=== PATIENT | female | born 1985 | race Caucasian/White ===

== ENCOUNTER 2021-08-18 18:54 | Inpatient (IN) | payer OTHER, SELFPAY ==
[2021-08-18 19:11] VITALS: BP 139/88; PULSE 93; RESP 16; TEMP 37.1; O2SAT 99; BMI 23.3
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
[2021-08-18 20:09] LABS: COVID-19 Test Negative (Negative)
[2021-08-18 20:57] LABS: Amphetamine Screen Urine Not Detected (Not Detect); Barbiturates, Urine Not Detected (Not Detect); Benzodiazepines Screen Urine Not Detected (Not Detect); Cannabinoid Screen Urine POSITIVE (Not Detect); Cocaine Screen Urine Not Detected (Not Detect); Fentanyl, urine Not Detected (Not Detect); Opiate Screen Urine Not Detected (Not Detect); Phencyclidine Screen Urine Not Detected (Not Detect)
[2021-08-18 21:15] LABS: UPreg QC Valid YES; Urine Pregnancy NEGATIVE (NEGATIVE)
[2021-08-18] MEDS: LORazepam 1 MG TABLET 2 MG PO (23:09)
[2021-08-18] MEDS: diphenhydrAMINE HCL 25 MG TABLET 50 MG PO (23:09)
[2021-08-18 23:14] VITALS: BP 144/79; PULSE 65; RESP 18; TEMP 36.7; O2SAT 98
[2021-08-19 01:23] LABS: Appearance Urine CLEAR; Color Urine YELLOW; Glucose Urine UA NEG (NEG); Leukocyte Esterase Urine NEG (NEG); Nitrite Urine NEG (NEG); Urine Blood NEG (NEG); Urine Ketones NEG (NEG); Urine Protein NEG (NEG-TRACE)
--- NOTE | 2021-08-19 06:11 | PC.NURSE ---
Patient slept well, administered Ativan 2 mg po and Benadryl 50 mg po with positive effect, mood depressed affect flat, behavior non concerning at this time, medication compliant, currently not on any medication/stop taking her scheduled medication her provider aware, disposition care team is section 12 inpatient bed search, will continue to monitor.
--- NOTE | 2021-08-19 07:14 | PC.NURSE ---
patient appears to remain asleep at present respirations are even and unlabored patient appears in no distress
[2021-08-19 16:00] VITALS: BP 115/74; PULSE 53; RESP 16; TEMP 36.9; O2SAT 100
[2021-08-19 16:14] LABS: MANUAL DIFF FLAG NO
[2021-08-19 16:16] LABS: Basophils Percent Auto 0.6 % (0-2); Eosinophils Absolute Auto 0.1 X10*3/uL (0.0-0.4); Eosinophils Percent Auto 1.1 % (0-4); Hematocrit 40.1 % (37.0-47.0); Hemoglobin 13.7 g/dl (12.0-16.0); Imm Gran Abs Auto 0.01 X10*3/uL (0.00-0.03); Imm Gran Pct Auto 0.2 % (0.0-0.4); Lymphocytes Absolute Auto 1.4 X10*3/uL (1.2-4.9); Lymphocytes Percent Auto 26.1 % (20-40); Mean Corpuscular HGB Conc 34.2 g/dl (31.0-35.0); Mean Corpuscular Volume 87.7 fL (80.0-98.0); Mean Platelet Volume 10.2 fL (9.4-12.3); Monocytes Absolute Auto 0.5 X10*3/uL (0.1-1.2); Monocytes Percent Auto 9.7 % (2-11); Neutrophils Absolute Auto 3.3 x10*3/uL (2.0-8.3); Neutrophils Percent Auto 62.3 % (45-73); Platelet Count 176 X10*3/uL (160-400); Red Blood Count 4.57 X10*6/uL (4.20-5.50); Red Cell Distribution Width 11.7 % (11.0-16.0); White Blood Count 5.4 X10*3/uL (4.8-10.8)
[2021-08-19 16:31] LABS: Alanine Aminotransferase 8 U/L (0-31); Albumin Level 4.2 g/dL (3.5-5.0); Alkaline Phosphatase 56 U/L (39-117); Anion Gap 9 (12-20); Aspartate Amino Transferase 15 U/L (5-31); Bilirubin Total 1.2 mg/dL (0.0-1.0); Blood Urea Nitrogen 9 mg/dL (9-16); Calcium 9.3 mg/dL (8.4-10.2); Carbon Dioxide 28 mmol/L (22-29); Chloride 107 mmol/L (96-108); Creatinine Clr Calc Pharmacy 87.7; Estimated Glomerular Filt Rate > 60; Glucose Fasting 83 mg/dL (60-99); Sodium 140 mmol/L (135-145); Total Protein 6.8 g/dL (6.5-8.0)
[2021-08-19 16:35] LABS: COVID-19 Test Negative (Negative)
[2021-08-19 19:56] VITALS: BP 148/103; PULSE 112; RESP 18; TEMP 37.6; O2SAT 100
[2021-08-19 20:01] VITALS: BP 148/103; PULSE 112; RESP 18; TEMP 37.6
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
[2021-08-19] MEDS: traZODone HCL 50 MG TABLET PO (22:15)
[2021-08-19] MEDS: Acetaminophen 325 MG TABLET 650 MG PO (22:18)
[2021-08-20 09:15] LABS: Estimated Average Glucose 94 mg/dL; Hemoglobin A1c % 4.9 %
[2021-08-20 09:41] LABS: Cholesterol 167 mg/dL; HDL Cholesterol 60 mg/dL; LDL Cholesterol Calculated 93 mg/dl; Triglycerides 70 mg/dL
[2021-08-20 10:01] LABS: Thyroid Stimulating Hormone 0.49 uIU/mL (0.32-4.0)
[2021-08-20 10:07] VITALS: BP 131/92; PULSE 122; RESP 18; TEMP 36.7; O2SAT 98
[2021-08-20 10:26] LABS: Folate 16.8 ng/mL (> or = 4.0); Vitamin B12 253 pg/mL (200-900)
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
[2021-08-20 14:45] VITALS: BP 136/84; PULSE 114
[2021-08-20] MEDS: cloNIDine HCL 0.1 MG TABLET 0.05 MG PO (14:46)
[2021-08-20 20:33] VITALS: BP 121/84; PULSE 95; RESP 18; TEMP 36.6; O2SAT 97
[2021-08-20] MEDS: cloNIDine HCL 0.1 MG TABLET PO (20:36)
[2021-08-20] MEDS: traZODone HCL 50 MG TABLET PO (23:02)
[2021-08-21 07:00] VITALS: BMI 22.4
[2021-08-21 10:15] VITALS: BP 128/85; PULSE 125; RESP 18; TEMP 36.4; O2SAT 98
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
[2021-08-21 21:05] VITALS: BP 133/86; PULSE 101; TEMP 38.3
[2021-08-21] MEDS: Acetaminophen 325 MG TABLET 650 MG PO (22:16)
[2021-08-21] MEDS: cloNIDine HCL 0.1 MG TABLET PO (22:17)
[2021-08-21] MEDS: QUEtiapine Fumarate 50 MG TABLET PO (22:17)
[2021-08-21] MEDS: Milk of Magnesia 30 ML ORAL.SUSP PO (23:28)
[2021-08-22] MEDS: hydrOXYzine HCL 25 MG TABLET PO (02:24)
[2021-08-22 06:00] VITALS: BP 132/88; PULSE 104; RESP 18; TEMP 36.9; O2SAT 98
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
[2021-08-22] MEDS: cloNIDine HCL 0.1 MG TABLET PO ×2 (15:18→21:00)
[2021-08-22 15:19] VITALS: BP 113/79; PULSE 115
[2021-08-22 18:00] VITALS: BP 119/72; PULSE 69; RESP 16; TEMP 36; O2SAT 98
[2021-08-22] MEDS: Lithium Carbonate ER 300 MG TABLET.ER 600 MG PO (21:00)
[2021-08-23] MEDS: QUEtiapine Fumarate 50 MG TABLET PO ×2 (02:36→20:50)
[2021-08-23 08:52] VITALS: BP 110/78; PULSE 90; TEMP 36.6
[2021-08-23] MEDS: Acetaminophen 325 MG TABLET 650 MG PO ×2 (11:02→18:54)
[2021-08-23] MEDS: Milk of Magnesia 30 ML ORAL.SUSP PO (11:02)
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
[2021-08-23] MEDS: Magnesium Citrate 300 ML SOLUTION PO (15:05)
[2021-08-23 20:40] VITALS: BP 123/78; PULSE 103; TEMP 37; O2SAT 99
[2021-08-23] MEDS: Lithium Carbonate ER 300 MG TABLET.ER 600 MG PO (20:50)
[2021-08-23] MEDS: Docusate Sodium 100 MG CAPSULE PO (20:50)
[2021-08-23] MEDS: cloNIDine HCL 0.1 MG TABLET PO (20:51)
[2021-08-24] MEDS: Acetaminophen 325 MG TABLET 650 MG PO (03:11)
[2021-08-24] MEDS: QUEtiapine Fumarate 50 MG TABLET PO ×2 (03:12→22:02)
[2021-08-24 08:30] VITALS: BP 146/106; PULSE 104; TEMP 36.6
[2021-08-24] MEDS: Docusate Sodium 100 MG CAPSULE PO ×2 (08:45→21:58)
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
[2021-08-24] MEDS: hydrOXYzine HCL 25 MG TABLET PO ×2 (11:31→16:09)
[2021-08-24] MEDS: cloNIDine HCL 0.1 MG TABLET PO (14:52)
[2021-08-24 21:30] VITALS: BP 121/79; PULSE 87; TEMP 37.1
[2021-08-24] MEDS: Lithium Carbonate ER 300 MG TABLET.ER 600 MG PO (21:59)
[2021-08-24] MEDS: cloNIDine HCL 0.2 MG TABLET PO (21:59)
[2021-08-25 06:00] VITALS: BP 140/87; PULSE 92; RESP 18; TEMP 36.8; O2SAT 99
[2021-08-25] MEDS: cloNIDine HCL 0.1 MG TABLET PO (08:52)
[2021-08-25] MEDS: Docusate Sodium 100 MG CAPSULE PO ×2 (08:52→22:55)
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
[2021-08-25 19:30] VITALS: BP 148/67; PULSE 108; TEMP 36.8; O2SAT 100
[2021-08-25] MEDS: cloNIDine HCL 0.2 MG TABLET PO (22:55)
[2021-08-25] MEDS: Lithium Carbonate ER 450 MG TABLET.ER 900 MG PO (22:55)
[2021-08-25] MEDS: QUEtiapine Fumarate 100 MG TABLET PO (22:55)
[2021-08-26 06:00] VITALS: BP 137/80; PULSE 82; RESP 18; TEMP 36.9; O2SAT 99
[2021-08-26] MEDS: Docusate Sodium 100 MG CAPSULE PO ×2 (08:27→23:01)
[2021-08-26] MEDS: hydrOXYzine HCL 25 MG TABLET PO (10:37)
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
[2021-08-26 22:55] VITALS: BP 134/80; PULSE 80; TEMP 36.4; O2SAT 100
[2021-08-26] MEDS: QUEtiapine Fumarate 100 MG TABLET PO (23:01)
[2021-08-26] MEDS: cloNIDine HCL 0.2 MG TABLET PO (23:01)
[2021-08-26] MEDS: Lithium Carbonate ER 450 MG TABLET.ER 900 MG PO (23:01)
[2021-08-27 06:00] VITALS: BP 113/71; PULSE 82; RESP 18; TEMP 36.8; O2SAT 100
[2021-08-27] MEDS: Docusate Sodium 100 MG CAPSULE PO (08:05)
[2021-08-27 09:04] LABS: Anion Gap 11 (12-20); Carbon Dioxide 28 mmol/L (22-29); Chloride 105 mmol/L (96-108); Creatinine Clr Calc Pharmacy 87.7; Estimated Glomerular Filt Rate > 60; Potassium 3.9 mmol/L (3.3-5.1); Sodium 140 mmol/L (135-145)
[2021-08-27 09:27] LABS: TSH reflex Free T4 1.13 uIU/mL (0.32-4.0)
[2021-08-27 09:50] LABS: Blood Urea Nitrogen 15 mg/dL (9-16)
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
[2021-08-27] MEDS: hydrOXYzine HCL 25 MG TABLET PO (13:18)
== END 2021-08-27 14:15 | disposition home or self-care (01) | DRG 751 ==
LOC: HO.ED 21:18 → HO.PM5 08-19 18:02
PROVIDERS: Physician Assistant; Social Worker; Admitting Provider Psychiatry & Neurology Psychiatry; Emergency Provider Emergency Medicine; Visit Provider Psychiatry & Neurology Psychiatry
DX: F33.2 Major depressive disorder, recurrent severe without psychotic features (principal); R45.851 Suicidal ideations; F43.10 Post-traumatic stress disorder, unspecified; Z91.51 Personal history of suicidal behavior; Z20.822 Contact with and (suspected) exposure to COVID-19; Z79.899 Other long term (current) drug therapy
CPT/HCPCS: 36415; 80051; 80053; 80061; 80178; 80307; 81003; 81025; 82565; 82607; 82746; 83036; 84443; 84520; 85025; 87635; 99285; Q0163

== ENCOUNTER 2022-12-27 18:14 | Emergency (ER) | payer OTHER, SELFPAY ==
[2022-12-27 18:22] VITALS: BP 117/66; PULSE 119; RESP 20; TEMP 36.5; O2SAT 100; BMI 25.0
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
== END 2022-12-27 23:58 | disposition home or self-care (01) ==
PROVIDERS: Emergency Provider Emergency Medicine
DX: F32.A Depression, unspecified (principal)
CPT/HCPCS: 36415; 80053; 80178; 80307; 81001; 84702; 85025; 99283; S9485

== ENCOUNTER 2024-10-31 20:13 | Inpatient (IN) | payer MEDICAID, SELFPAY ==
--- NOTE | ~2024-10-31 | XR_ITS ---
CLINICAL HISTORY: Blunt injury 3 view left hand Comparison: None Findings: No fractures or dislocations. No significant loss of joint space or osteophytes. No erosions. No radiopaque foreign body. IMPRESSION: 1. No acute findings This document has been electronically signed by: Boy John MD on 11/01/2024 00:28:10
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
[2024-10-31 20:27] VITALS: BP 122/85; PULSE 106; RESP 20; TEMP 37; O2SAT 99; BMI 22.5
[2024-10-31 21:37] LABS: Basophils Percent Auto 0.3 % (0-2); Eosinophils Absolute Auto 0.1 X10*3/uL (0.0-0.4); Eosinophils Percent Auto 1.2 % (0-4); Hematocrit 38.8 % (37.0-47.0); Hemoglobin 13.6 g/dl (12.0-16.0); Imm Gran Abs Auto 0.02 X10*3/uL (0.00-0.03); Imm Gran Pct Auto 0.3 % (0.0-0.4); Lymphocytes Absolute Auto 1.1 X10*3/uL (1.2-4.9); Lymphocytes Percent Auto 14.2 % (20-40); MANUAL DIFF FLAG NO; Mean Corpuscular HGB Conc 35.1 g/dl (31.0-35.0); Mean Corpuscular Hemoglobin 30.8 pg (27.0-33.0); Mean Platelet Volume 9.4 fL (9.4-12.3); Monocytes Absolute Auto 0.5 X10*3/uL (0.1-1.2); Monocytes Percent Auto 6.5 % (2-11); Neutrophils Absolute Auto 5.7 x10*3/uL (2.0-8.3); Neutrophils Percent Auto 77.5 % (45-73); Platelet Count 235 X10*3/uL (160-400); Red Blood Count 4.41 X10*6/uL (4.20-5.50); Red Cell Distribution Width 12.1 % (11.0-16.0); White Blood Count 7.4 X10*3/uL (4.8-10.8)
[2024-10-31 21:53] LABS: Appearance Urine Clear; Color Urine Yellow; Glucose Urine UA Negative (Negative); Leukocyte Esterase Urine Small (1+) (Negative); Nitrite Urine Negative (Negative); UMIC TRIGGER UACC YES; Urine Blood Trace (Negative); Urine Ketones Negative (Negative); Urine Protein Negative (Neg-Trace)
[2024-10-31 21:54] LABS: UPreg QC Valid YES; Urine Pregnancy NEGATIVE (NEGATIVE)
[2024-10-31 21:55] LABS: Bacteria Urine 3+ (None Seen); Hyaline Casts Urine 0-2 /LPF (0-2); RBC Urine 0-2 /HPF (0-2); Squamous Epithelial Cell Urine 0-2 /HPF (0-2); UACC Culture Trigger YES
[2024-10-31 22:02] LABS: Alanine Aminotransferase 9 U/L (0-31); Albumin Level 4.1 g/dL (3.5-5.0); Alkaline Phosphatase 69 U/L (39-117); Anion Gap 11 (12-20); Aspartate Amino Transferase 20 U/L (5-31); Blood Urea Nitrogen 14 mg/dL (9-16); Calcium 8.8 mg/dL (8.4-10.2); Carbon Dioxide 24 mmol/L (22-29); Chloride 109 mmol/L (96-108); Creatinine Clr Calc Pharmacy 81.5; Estimated Glomerular Filt Rate > 60; Ethanol < 10 mg/dL; Glucose Random 90 mg/dL (60-115); Potassium 3.6 mmol/L (3.3-5.1); Sodium 140 mmol/L (135-145); Total Protein 7.1 g/dL (6.5-8.0)
[2024-10-31 22:05] LABS: Amphetamine Screen Urine Not Detected (Not Detect); Barbiturates, Urine Not Detected (Not Detect); Benzodiazepines Screen Urine POSITIVE (Not Detect); Buprenorphine Scr Not Detected (Not Detect); Cannabinoid Screen Urine POSITIVE (Not Detect); Cocaine Screen Urine Not Detected (Not Detect); Fentanyl, urine Not Detected (Not Detect); Methadone Screen, Urine Not Detected (Not Detect); Opiate Screen Urine Not Detected (Not Detect); Oxycodone Screen Urine Not Detected (Not Detect); Phencyclidine Screen Urine Not Detected (Not Detect)
--- NOTE | 2024-10-31 23:00 | PC.NURSE ---
Care team at bedside
--- NOTE | 2024-10-31 23:48 | PC.NURSE ---
updated plan from careteam- plan for section 12 and bedsearch
--- NOTE | 2024-11-01 | ECG_ITS ---
Test Reason : RULE OUT PROLONGED QTC Blood Pressure : */* mmHG Vent. Rate : 90 BPM Atrial Rate : 90 BPM P-R Int : 140 ms QRS Dur : 100 ms QT Int : 394 ms P-R-T Axes : 52 49 35 degrees QTcB Int : 481 ms Normal sinus rhythm Prolonged QT Abnormal ECG No previous ECGs available Referred By: Saad Newberry Electronically Signed By: CUATE BOOKER
[2024-11-01 01:06] LABS: Lithium 0.73 mmol/L (0.60-1.20)
[2024-11-01] MEDS: Sennosides/Docusate Sodium TABLET 1 TAB PO ×3 (01:39→22:30)
[2024-11-01] MEDS: Ibuprofen 400 MG TABLET PO (01:39)
[2024-11-01] MEDS: clonazePAM 1 MG TABLET 2 MG PO ×3 (01:39→22:29)
[2024-11-01] MEDS: Lithium Carbonate ER 450 MG TABLET.ER 900 MG PO (01:39)
[2024-11-01] MEDS: QUEtiapine Fumarate 200 MG TABLET PO ×2 (01:40→08:14)
[2024-11-01 06:21] VITALS: BP 92/60; PULSE 67; RESP 18; TEMP 36.4; O2SAT 96
--- NOTE | 2024-11-01 07:24 | PC.NURSE ---
Assumed care of patient at 0645, patient appears to be sleeping, respirations even and unlabored, no apparent distress noted. Continue plan of care for ILPOC
--- NOTE | 2024-11-01 09:52 | PC.NURSE ---
Pt requesting her does not know she is here
[2024-11-01 14:10] VITALS: BP 108/64; PULSE 74; RESP 18; TEMP 37.2; O2SAT 96
[2024-11-01 14:55] VITALS: BP 125/87; PULSE 88; RESP 16; TEMP 36.8; O2SAT 99
[2024-11-01 15:00] VITALS: BP 131/88; PULSE 88; RESP 18; TEMP 37.1; O2SAT 98
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
[2024-11-01 18:11] VITALS: BMI 23.0
[2024-11-01] MEDS: Ketoconazole 2 % Shampoo 120 ML BTL 1 APPL TOPICAL (18:15)
--- NOTE | 2024-11-01 19:13 | PC.NURSE ---
Pt became very reactive and irritable towards limits placed on fragrance and scented conditioner. RN provided rationales behind the scent-free policy, however pt continued to challenge RN and was unable to tolerate limit setting. Pt stated you're telling me people have asthma towards perfumes? My brother has asthma and has never had a reaction to my conditioner so you're fucking lying. Pt was reactive and was talking over RN, also stating you're telling me you can't break the rules? You people only care about yourselves and you don't even take the time to think about how I feel and how I feel ugly and all I want is my conditioner and my makeup. RN informed pt she would meet with the provider in the morning & would need to approve her using her makeup with supervision, pt became reactive you're telling me a fucking psychiatrist needs to tell me how to do my contour? How are you telling me I need a psychiatrist to tell me what to do but your staff are able to wear makeup and do what they want? RN attempted to explain the unit policy but pt was not receptive and continued to challenge RN. Pt signed a 3 day because I don't want to be here, I thought it would be a better experience but you'd rather I just go over there and kill myself.
[2024-11-01 20:00] VITALS: BP 127/90; PULSE 109; RESP 16; TEMP 36.8; O2SAT 98
[2024-11-01 22:28] VITALS: BP 128/80
[2024-11-01] MEDS: Prazosin HCL 1 MG CAPSULE PO (22:28)
[2024-11-01] MEDS: QUEtiapine Fumarate 400 MG TABLET PO (22:28)
[2024-11-01] MEDS: Lithium Carbonate ER 450 MG TABLET.ER PO (22:29)
[2024-11-02 07:00] VITALS: BMI 22.9
[2024-11-02 07:41] VITALS: BP 121/83; PULSE 77; RESP 16; TEMP 37.2; O2SAT 99
[2024-11-02 07:56] LABS: Estimated Average Glucose 94 mg/dL; Hemoglobin A1C 112.5109 umol/L; Hemoglobin A1c % 4.9 % (<6.0); Total Hemoglobin (HGBA1C) 3687.7689 umol/L
[2024-11-02 08:13] LABS: Cholesterol 162 mg/dL (<200); HDL Cholesterol 59 mg/dL (>40); LDL Cholesterol Calculated 93 mg/dL (<100); Triglycerides 53 mg/dL (<150)
[2024-11-02 08:29] LABS: Free T4 (Free Thyroxine) 0.94 ng/dL (0.71-1.85); Thyroid Stimulating Hormone 2.84 uIU/mL (0.32-4.0)
[2024-11-02] MEDS: Sennosides/Docusate Sodium TABLET 1 TAB PO (08:34)
[2024-11-02] MEDS: clonazePAM 1 MG TABLET 2 MG PO (08:34)
[2024-11-02] MEDS: Lithium Carbonate ER 450 MG TABLET.ER PO (08:34)
[2024-11-02 08:42] LABS: Folate 10.3 ng/mL (> or = 4.0); Vitamin B12 229 pg/mL (200-900)
[2024-11-02] MEDS: Ibuprofen 600 MG TABLET PO (09:57)
--- NOTE | 2024-11-02 11:43 | MHC.CLN ---
CONSULT: PT REPORTS 30# WT LOSS X2 MONTHS CURRENT WT 62.4KG (11/02/24) PREVIOUS 68KG (12/27/22) PREVIOUS 61.6KG (08/18/21) PT WITH 12.6# WT LOSS X 2 YEARS, NONSIGNIFICANT AT THIS TIME PT IS WITHIN NORMAL BODY WT RANGE FOR HT; BMI 22.[address] LABS UNREMARKABLE PT IS OF VERY LOW NUTRITION RISK NO NEW ORDERS AT THIS TIME CONTINUE CURRENT CARE PLAN
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
== END 2024-11-02 15:35 | disposition home or self-care (01) | DRG 753 ==
LOC: HO.ED 11-01 01:15 → HO.PADLT16 11-01 14:04
PROVIDERS: Physician Assistant; Admitting Provider Psychiatry & Neurology Psychiatry; Emergency Provider Internal Medicine; Visit Provider Psychiatry & Neurology Psychiatry
DX: F31.81 Bipolar II disorder (principal); R45.851 Suicidal ideations; Z91.148 Patient's other noncompliance with medication regimen for other reason; F43.10 Post-traumatic stress disorder, unspecified; Z79.899 Other long term (current) drug therapy
CPT/HCPCS: 36415; 73130; 80053; 80061; 80178; 80307; 81001; 81025; 82607; 82746; 83036; 84439; 84443; 85025; 87086; 87088; 87186; 93005; 99285; S9485

== ENCOUNTER → 2024-11-01 08:59 | Outpatient (BNV) | payer MEDICAID, SELFPAY | PROVIDERS: Admitting Provider Psychiatry & Neurology Psychiatry; Emergency Provider Internal Medicine; Visit Provider Internal Medicine | DX: I45.81 Long QT syndrome (principal) | CPT/HCPCS: 93010 ==

== ENCOUNTER → 2024-11-01 13:19 | Outpatient (BNV) | payer OTHER, SELFPAY | PROVIDERS: Admitting Provider Psychiatry & Neurology Psychiatry; Emergency Provider Internal Medicine; Visit Provider Psychiatry & Neurology Psychiatry | DX: F43.11 Post-traumatic stress disorder, acute (principal) | CPT/HCPCS: 99233; 99499 ==

== ENCOUNTER → 2024-11-01 | Outpatient (BNV) | payer MEDICAID, SELFPAY | PROVIDERS: Emergency Provider Internal Medicine; Visit Provider Radiology Diagnostic Radiology | DX: M79.642 Pain in left hand (principal) | CPT/HCPCS: 73130 ==